=== PATIENT | female | born 1975 | race Caucasian/White ===

== ENCOUNTER → 2018-03-31 | Outpatient (CLI) | payer OTHER | LOC: FIMAGING 13:01 | PROVIDERS: ATTEND Advanced Practice Midwife | DX: O09.521 Supervision of elderly multigravida, first trimester (principal); Z3A.12 12 weeks gestation of pregnancy ==

== ENCOUNTER → 2018-05-20 | Outpatient (CLI) | payer OTHER | LOC: FIMAGING 10:28 | PROVIDERS: ATTEND Advanced Practice Midwife | DX: O09.522 Supervision of elderly multigravida, second trimester (principal); Z3A.20 20 weeks gestation of pregnancy ==

== ENCOUNTER → 2018-08-14 | Outpatient (CLI) | payer OTHER | LOC: FIMAGING 10:10 ==

== ENCOUNTER 2018-08-15 15:03 | Observation (INO) | payer OTHER | END 2018-08-15 17:30 | disposition home or self-care (01) | LOC: FLD 15:03 ==

== ENCOUNTER 2018-08-16 16:08 | Observation (INO) | payer OTHER | END 2018-08-16 18:09 | LOC: FLD 16:08 ==